=== PATIENT | female | born 2000 | race Caucasian/White ===

== ENCOUNTER 2019-09-07 20:18 | Emergency (ER) | payer OTHER, SELFPAY ==
[~2019-09-07] VITALS: Ht 175.3 cm; Wt 65.8 kg
[2019-09-07 20:19] VITALS: Ht 175.3 cm; Wt 65.8 kg
[2019-09-07 23:39] LABS: BASOPHIL % 0.3 % (0-2); PLATELET COUNT 219 x10^3mcL (130-400); RED CELL DISTRIBUTION WIDTH 13.1 % (11.5-14.5)
[2019-09-08 00:28] LABS: ALKALINE PHOSPHATASE 30 U/L (46-116); ALT/SGPT 31 U/L (14-59); AST/SGOT 13 U/L (15-37); BILIRUBIN DIRECT 0.13 mg/dL (0.0-0.2); BILIRUBIN TOTAL 0.44 mg/dL (0.20-1.00); CALCIUM 6.7 mg/dL (8.5-10.1); CARBON DIOXIDE 17.2 mmol/L (21-32); CHLORIDE SERUM 51 mmol/L (98-107); CREATININE SERUM 0.4 mg/dL (0.6-1.0); GFR1 > 60 mL/min; GLUCOSE SERUM 63 mg/dL (74-106)
[2019-09-08 00:35] LABS: ALBUMIN 2.6 g/dL (3.4-5.0)
[2019-09-08 00:36] LABS: POTASSIUM SERUM 1.4 mmol/L (3.5-5.1); SODIUM SERUM 60 mmol/L (136-145)
[2019-09-08 02:13] LABS: CALCIUM 7.8 mg/dL (8.5-10.1); CARBON DIOXIDE 27.5 mmol/L (21-32); CHLORIDE SERUM 102 mmol/L (98-107); CREATININE SERUM 0.8 mg/dL (0.6-1.0); GFR1 > 60 mL/min; GLUCOSE SERUM 84 mg/dL (74-106); POTASSIUM SERUM 4.2 mmol/L (3.5-5.1); SODIUM SERUM 138 mmol/L (136-145)
[2019-09-08 03:11] VITALS: BP 113/70
== END 2019-09-08 03:11 | disposition home or self-care (01) ==
LOC: ED 20:18
PROVIDERS: Student in an Organized Health Care Education/Training Program
DX: U07.1 COVID-19 (principal); R42 Dizziness and giddiness; R11.2 Nausea with vomiting, unspecified; R19.7 Diarrhea, unspecified; Z86.2 Personal history of diseases of the blood and blood-forming organs and certain disorders involving the immune mechanism
CPT/HCPCS: J7030; U0003-CS